=== PATIENT | male | born 1950 | race Caucasian/White ===

== ENCOUNTER → 2020-10-30 11:15 | Outpatient (CLI) | payer MEDICARE, OTHER, SELFPAY ==
--- NOTE | 2020-10-30 11:17 | DI.RAD.S_ITS ---
PROCEDURE: XR FINGER RT MIN 2V INDICATIONS: right finger TECHNIQUE: AP hand, 2 views of the 2nd finger(s) acquired. COMPARISON: None. FINDINGS: Bones: No fractures or dislocations. Mild 1st PIP and DIP joint osteoarthritic changes are seen with joint space narrowing and subchondral sclerosis. Subtle erosive changes are noted along radial aspect of 2nd proximal phalangeal head. Soft tissues: Soft tissue swelling surrounding 2nd PIP joint is seen. No suspicious soft tissue calcifications. IMPRESSION: No acute 2nd digit fracture or dislocation. 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 Erosive changes involving lateral aspect of 2nd proximal phalangeal head with surrounding soft tissue swelling concerning for erosion secondary to inflammatory arthropathy. Clinical correlation is recommended. Dictated by: Conor Brasher M.D. on 10/30/2020 at 13:15 Approved by: Conor Brasher M.D. on 10/30/2020 at 13:16
== END ==
PROVIDERS: PCP Internal Medicine; Referring Provider Internal Medicine; Visit Provider Internal Medicine
DX: M79.644 Pain in right finger(s) (principal); M19.041 Primary osteoarthritis, right hand
CPT/HCPCS: 73140

== ENCOUNTER → 2021-02-11 07:46 | Outpatient (CLI) | payer MEDICARE, OTHER, SELFPAY ==
[2021-02-11 09:56] LABS: Alanine Aminotransferase 33 IU/L (<50); Albumin 4.4 g/dL (3.5-5.0); Albumin Globulin Ratio 1.5 (1.0-2.8); Alkaline Phosphatase 47 U/L (38-126); Aspartate Aminotransferase 31 IU/L (17-59); BUN Creatinine Ratio 16.8 (6-22); Bilirubin Total 0.8 mg/dL (0.2-1.3); Blood Urea Nitrogen 18 mg/dL (9-20); Calcium 9.2 mg/dL (8.4-10.2); Carbon Dioxide 26 mmol/L (22-32); Chloride 100 mmol/L (98-107); Cholesterol 217 mg/dL (140-199); Estimated Glomerular Filt Rate > 60.0 mL/min (>60); Globulin 2.9 g/dL (1.7-4.1); Glucose 99 mg/dL (80-110); HDL Cholesterol 65 mg/dL (40-60); LDL Cholesterol Calculated 137 mg/dL (<100); Potassium 3.3 mmol/L (3.4-5.1); Sodium 138 mmol/L (137-145); Total Protein 7.3 g/dL (6.3-8.2); Triglycerides 73 mg/dL (35-150)
[2021-02-11 18:03] LABS: HEMOLYSIS < 15 (0-50); Prostate Specific Antigen Scrn 2.07 ng/mL (0.1-4.0)
== END ==
PROVIDERS: PCP Internal Medicine; Referring Provider Internal Medicine; Visit Provider Internal Medicine
DX: I10 Essential (primary) hypertension (principal); Z12.5 Encounter for screening for malignant neoplasm of prostate; Z13.1 Encounter for screening for diabetes mellitus; Z13.220 Encounter for screening for lipoid disorders
CPT/HCPCS: 36415; 80053; 80061; G0103

== ENCOUNTER → 2021-08-16 09:54 | Outpatient (CLI) | payer MEDICARE, OTHER, SELFPAY ==
[2021-08-16 11:16] LABS: BUN Creatinine Ratio 19.8 (6-22); Blood Urea Nitrogen 20 mg/dL (9-20); Calcium 9.5 mg/dL (8.4-10.2); Carbon Dioxide 28 mmol/L (22-32); Chloride 99 mmol/L (98-107); Estimated Glomerular Filt Rate > 60.0 mL/min (>60); Glucose 105 mg/dL (80-110); HEMOLYSIS < 15 (0-50); Potassium 3.5 mmol/L (3.4-5.1); Sodium 137 mmol/L (137-145)
== END ==
PROVIDERS: PCP Internal Medicine; Referring Provider Internal Medicine; Visit Provider Internal Medicine
DX: I10 Essential (primary) hypertension (principal); E87.6 Hypokalemia
CPT/HCPCS: 36415; 80048; 83735

== ENCOUNTER → 2022-02-18 07:24 | Outpatient (CLI) | payer MEDICARE, OTHER, SELFPAY ==
[2022-02-18 08:38] LABS: Blood Urea Nitrogen 16 mg/dL (9-20); Calcium 8.9 mg/dL (8.4-10.2); Carbon Dioxide 28 mmol/L (22-32); Chloride 105 mmol/L (98-107); Cholesterol 204 mg/dL (140-199); Estimated Glomerular Filt Rate > 60 mL/min (>60); Glucose 107 mg/dL (80-110); HDL Cholesterol 66 mg/dL (40-60); HEMOLYSIS < 15 (0-50); LDL Cholesterol Calculated 125 mg/dL (<100); Magnesium 1.8 mg/dL (1.6-2.3); Potassium 3.3 mmol/L (3.4-5.1); Sodium 139 mmol/L (137-145); Triglycerides 66 mg/dL (35-150)
[2022-02-18 09:07] LABS: Prostate Specific Antigen Scrn 2.31 ng/mL (0.1-4.0)
== END ==
PROVIDERS: PCP Internal Medicine; Referring Provider Internal Medicine; Visit Provider Internal Medicine
DX: I10 Essential (primary) hypertension (principal); Z12.5 Encounter for screening for malignant neoplasm of prostate; E78.2 Mixed hyperlipidemia; E83.42 Hypomagnesemia
CPT/HCPCS: 36415; 80048; 80061; 83735; G0103

== ENCOUNTER → 2022-03-16 08:53 | Outpatient (CLI) | payer MEDICARE, OTHER, SELFPAY ==
[2022-03-16 10:28] LABS: COVID19 -Nasal RAPID Negative (Negative)
== END ==
PROVIDERS: PCP Internal Medicine; Visit Provider Surgery
DX: Z20.822 Contact with and (suspected) exposure to COVID-19 (principal); Z01.812 Encounter for preprocedural laboratory examination
CPT/HCPCS: 87635; C9803

== ENCOUNTER 2022-03-17 07:38 | Day surgery (SDC) | payer MEDICARE, OTHER, SELFPAY ==
--- NOTE | 2022-03-17 | PATH_ITS ---
[facility] Accession Number: [id number] . 01 Material submitted: . PART A: colon - TRANSVERSE POLYPS PART B: colon - DISTAL TRANSVERSE POLYP PART C: sigmoid colon - SIGMOID POLYP PART D: rectum - RECTAL POLYP . 01 Clinical history: . COLONOSCOPY PERSONAL HISTORY OF COLONIC POLYPS . 01 Diagnosis: A. Transverse Polyps: Portions of tubular adenoma x2. . B. Distal Transverse Polyp: Portion of hyperplastic polyp x1. Superficial portion of colorectal mucosa x1 with no significant histomorphologic abnormality. . C. Sigmoid Polyp: Hyperplastic polyp. . D. Rectal Polyp: Tubular adenoma. MRV 03/21/2022 1527 Local . 01 Electronically signed: . Jacqueline Peraza MD, Pathologist NPI- [id number] . 01 Gross description: . Part A: TRANSVERSE POLYPS: Received in formalin are 2 fragment(s) of damon, soft tissue measuring 0.3 x 0.1 x 0.1 cm to 0.4 x 0.3 x 0.2 cm submitted entirely in 1 cassette(s) Part B: DISTAL TRANSVERSE POLYP: Received in formalin are 2 fragment(s) of damon, soft tissue measuring 0.3 x 0.3 x 0.2 cm to 0.4 x 0.3 x 0.2 cm submitted entirely in 1 cassette(s) Part C: SIGMOID POLYP: Received in formalin is 1 fragment(s) of damon, soft tissue measuring 0.8 x 0.6 x 0.5 cm submitted entirely in 1 cassette(s) Part D: RECTAL POLYP: Received in formalin is 1 fragment(s) of damon, soft tissue measuring 0.3 x 0.3 x 0.2 cm submitted entirely in 1 cassette(s) /JESUS MANUEL 03/18/20228 Local . 01 Pathologist provided ICD-10: K63.5 . 01 CPT . 137290, 706577, 848779, 193718 Specimen Comment: A courtesy copy of this report has been sent to [phone] Performed at: 01 [facility] [address] [place] [address], [place], [place] [id number] MD All King MD Phone: [phone]
[2022-03-17 07:54] VITALS: BP 144/87; PULSE 62; RESP 16; TEMP 36.6; O2SAT 97
[2022-03-17] MEDS: LACTATED RINGERS 1,000 ML 84 ML IV (08:04)
--- NOTE | 2022-03-17 08:32 | PM.HP.1 ---
History of Present Illness History of Present Illness Date Patient Seen: 03/17/22 Time Patient Seen: 08:32 Chief complaint: COLONOSCOPY Narrative: Tony is a 72-year-old man who is here for colonoscopy. He had 1 polyp removed at his last colonoscopy which he believes was 6 years ago. He has had other colonoscopies in the past where polyps were found. He also has a sister who had colon cancer in her 60s. Patient History Medical History (Updated 03/17/22 @ 08:33 by Troy Gómez MD) Acne (~1965) Chronic back pain (~1974) Erectile dysfunction Essential hypertension (~2004) H/O adenomatous polyp of colon (~2001) Hand pain (~2019) Hearing loss (~2009) Mixed hyperlipidemia PTSD (post-traumatic stress disorder) (~1970) Recurrent sinusitis (~1970) Retinal detachment (~2014) Scarring of lung (~1970) Tinnitus (~2005) Surgical History Anesthesia S/P inguinal hernia repair S/P tonsillectomy (~1954) Family & Social History Family History Father Cancer Mother Stroke Social History: household members spouse Tobacco & Substance use: Smoking Status Former smoker alcohol intake current Substance Use Type does not use Meds Home Medications and Allergies Home Medications Medication Instructions Recorded Confirmed Type chlorthalidone 25 mg tablet 25 mg PO QDAY #90 tabs 05/27/21 03/17/22 Rx felodipine 10 mg tablet,extended 10 mg PO DAILY #90 tabs 05/27/21 03/17/22 Rx release 24 hr fluticasone propionate 50 2 spray intranasal DAILY #32.4 mL 08/16/21 01/10/22 Rx mcg/actuation nasal spray,suspension potassium chloride 20 mEq 20 meq PO BID #180 tabs 02/19/22 03/17/22 Rx tablet,extended release Allergies Allergy/AdvReac Type Severity Reaction Status Date / Time No Known Drug Allergies Allergy Verified 01/10/22 09:05 Exam Vital Signs (past 8 hours): - 03/17/22 07:54 Temperature 98 F Pulse Rate 62 Respiratory Rate 16 Blood Pressure 144/87 H Pulse Oximetry 97 Oxygen Delivery Method Room Air Oxygen Delivery Method Room Air Const General: healthy appearing Resp Effort & Inspection: normal respiratory effort Assessment & Plan Assessment and plan (1) Family history of colon cancer: Status: Acute Plan 72-year-old man with a history of colon polyps and a family history of colon cancer who is here for colonoscopy. We reviewed the risks and benefits and he would like to proceed. COVID-19 COVID-19 status: Negative Result date/Date tested (Pos, Neg/Pending): 03/16/22 Time Spent With Patient Critical Care time: I spent a total of [] minutes of critical care time on this patient's care today; this time is exclusive of procedural time.
[2022-03-17] MEDS: MIDAZOLAM 5 MG/5 ML VIAL 7 MG IV (08:50)
[2022-03-17] MEDS: fentaNYL 250 MCG/5 ML INJ 150 MCG IV (08:50)
--- NOTE | 2022-03-17 09:25 | PM.OP.COLON ---
Operative Date/Time/Diagnoses Date of procedure: 03/17/22 Time of procedure: 09:25 Pre-op diagnosis: Family history of colon cancer personal history of colon polyps Post-op diagnosis: same Procedure & Clinicians Study performed: Colonoscopy Same procedure as scheduled: Yes Surgeon: Troy Gómez Procedure Notes Procedure in detail: Surgeon: Troy Gómez MD Procedure: The patient was brought to the endoscopy suite, placed in left lateral decubitus position. The patient was connected to monitoring devices. A time-out was performed. Sedation was administered. Once the patient was adequately sedated, a digital rectal exam was performed and was normal. The scope was then inserted and advanced to the cecum where the appendiceal orifice was identified and photographed. The scope was then slowly withdrawn over greater than 6 minutes. The mucosa was thoroughly inspected. There were two small transverse polyp of roughly 5 mm removed with Jumbo forceps. There was a 7 mm polyp in the distal transverse colon removed with cold snare. There was a sigmoid polyp removed with hot snare and a rectal polyp removed with cold snare each about 8 mm. There was The scope was retroflexed in the rectum. No abnormalities were noted. The scope was straightened and removed. The patient was awakened and brought to recovery. Versed: 7 mg Fentanyl: 150 mcg EBL: 10 mL Findings: 2 transverse colon polyps of 5 mm, 1 distal transverse colon polyp of 7 mm, 1 sigmoid polyp about 8 mm and 1 rectal polyp about 8 mm Scope withdrawal time: 32 Sedation minutes: 39 Post-procedure Recommendations: Will call with biopsy results Disposition: PACU
[2022-03-17 09:29] VITALS: BP 133/78; PULSE 57; RESP 17; TEMP 35.9; O2SAT 95
[2022-03-17 09:34] VITALS: BP 127/76; PULSE 54; RESP 13; TEMP 36.5; O2SAT 96
[2022-03-17 09:39] VITALS: BP 110/72; PULSE 58; RESP 16; TEMP 36.5; O2SAT 96
[2022-03-17 09:51] VITALS: BP 126/76; PULSE 57; RESP 11; TEMP 35.9; O2SAT 98
== END 2022-03-17 09:58 | disposition home or self-care (01) ==
PROVIDERS: PCP Internal Medicine; Referring Provider Surgery; Visit Provider Surgery
PROC: 0DJD8ZZ Inspection of Lower Intestinal Tract, Via Natural or Artificial Opening Endoscopic (ICD-10-PCS; CPT 45378; principal; 2022-03-17 08:45)
DX: Z12.11 Encounter for screening for malignant neoplasm of colon (principal); Z80.0 Family history of malignant neoplasm of digestive organs; Z86.010 Personal history of colon polyps; D12.3 Benign neoplasm of transverse colon; D12.8 Benign neoplasm of rectum
CPT/HCPCS: 45385; 45380; 99152; 99153; J2250; J3010

== ENCOUNTER → 2022-07-12 07:48 | Outpatient (CLI) | payer MEDICARE, OTHER, SELFPAY ==
[2022-07-12 09:26] LABS: BUN Creatinine Ratio 16.2 (6-22); Blood Urea Nitrogen 16 mg/dL (9-20); Calcium 9.1 mg/dL (8.4-10.2); Carbon Dioxide 27 mmol/L (22-32); Chloride 99 mmol/L (98-107); Estimated Glomerular Filt Rate > 60 mL/min (>60); Glucose 105 mg/dL (80-110); HEMOLYSIS < 15 (0-50); Magnesium 1.9 mg/dL (1.6-2.3); Potassium 3.5 mmol/L (3.4-5.1); Sodium 137 mmol/L (137-145)
== END ==
PROVIDERS: PCP Internal Medicine; Referring Provider Internal Medicine; Visit Provider Internal Medicine
DX: I10 Essential (primary) hypertension (principal); E87.6 Hypokalemia
CPT/HCPCS: 36415; 80048; 83735

== ENCOUNTER → 2023-02-16 08:26 | Outpatient (CLI) | payer MEDICARE, OTHER, SELFPAY ==
[2023-02-16 09:42] LABS: Alanine Aminotransferase 35 IU/L (<50); Albumin 4.5 g/dL (3.5-5.0); Albumin Globulin Ratio 1.5 (1.0-2.8); Alkaline Phosphatase 49 U/L (38-126); Aspartate Aminotransferase 28 IU/L (17-59); BUN Creatinine Ratio 14.8 (6-22); Bilirubin Total 0.9 mg/dL (0.2-1.3); Blood Urea Nitrogen 16 mg/dL (9-20); Calcium 9.1 mg/dL (8.4-10.2); Carbon Dioxide 27 mmol/L (22-32); Chloride 102 mmol/L (98-107); Cholesterol 230 mg/dL (140-199); Estimated Glomerular Filt Rate > 60 mL/min (>60); Globulin 3.1 g/dL (1.7-4.1); Glucose 111 mg/dL (80-110); HDL Cholesterol 76 mg/dL (40-60); HEMOLYSIS < 15 (0-50); LDL Cholesterol Calculated 140 mg/dL (<100); Magnesium 1.9 mg/dL (1.6-2.3); Potassium 3.5 mmol/L (3.4-5.1); Sodium 138 mmol/L (137-145); Total Protein 7.6 g/dL (6.3-8.2); Triglycerides 68 mg/dL (35-150)
== END ==
PROVIDERS: PCP Internal Medicine; Referring Provider Internal Medicine; Visit Provider Internal Medicine
DX: I10 Essential (primary) hypertension (principal); E78.2 Mixed hyperlipidemia
CPT/HCPCS: 36415; 80053; 80061; 83735

== ENCOUNTER → 2023-05-08 07:23 | Outpatient (CLI) | payer MEDICARE, OTHER, SELFPAY ==
[2023-05-08 08:46] LABS: BUN Creatinine Ratio 12.9 (6-22); Blood Urea Nitrogen 12 mg/dL (9-20); Calcium 8.9 mg/dL (8.4-10.2); Carbon Dioxide 27 mmol/L (22-32); Chloride 101 mmol/L (98-107); Estimated Glomerular Filt Rate > 60 mL/min (>60); Glucose 90 mg/dL (80-110); HEMOLYSIS < 15 (0-50); Potassium 3.7 mmol/L (3.4-5.1); Sodium 136 mmol/L (137-145)
== END ==
PROVIDERS: PCP Internal Medicine; Referring Provider Internal Medicine; Visit Provider Internal Medicine
DX: E78.2 Mixed hyperlipidemia (principal); I10 Essential (primary) hypertension
CPT/HCPCS: 36415; 80048

== ENCOUNTER → 2023-06-12 11:36 | Outpatient (CLI) | payer MEDICARE, OTHER, SELFPAY ==
--- NOTE | 2023-06-12 11:37 | DI.RAD.S_ITS ---
PROCEDURE: XR CHEST 2V INDICATIONS: chest pain TECHNIQUE: 2 views of the chest were acquired. COMPARISON: None. FINDINGS: Surgical changes and devices: None. Lungs and pleura: Lungs are clear. No pleural effusions or pneumothorax. Mediastinum: Mediastinal contours are normal. Heart size is normal. Bones and chest wall: No suspicious bony abnormalities. Soft tissues appear unremarkable. IMPRESSION: No acute cardiopulmonary abnormality is seen. Approved by: Easton Christopher M.D. on 06/12/2023 at 14:10
[2023-06-12 12:32] LABS: Add Manual Diff / Slide Review NO; Basophils Absolute Auto 100 /uL (0-100); Basophils Percent Auto 0.9 % (0-2); Eosinophils Absolute Auto 100 /uL (0-450); Eosinophils Percent Auto 1.9 % (2-4); Hematocrit 43.4 % (41-53); Hemoglobin 14.9 g/dL (13.5-17.5); Lymphocytes Absolute Auto 1700 /uL (1100-4500); Lymphocytes Percent Auto 24.4 % (25-40); Mean Corpuscular HGB Conc 34.4 % (30-36); Mean Corpuscular Hemoglobin 32.6 PG (26-34); Mean Corpuscular Volume 94.7 fL (80-100); Monocytes Absolute Auto 600 /uL (0-900); Monocytes Percent Auto 7.9 % (3-14); Neutrophils Absolute Auto 4500 /uL (1500-7000); Neutrophils Percent Auto 64.9 % (50-75); Platelet Count 208 X10^3/uL (150-400); Red Blood Cell Count 4.58 X10^6/uL (4.5-5.9); Red Cell Distribution Width 12.7 % (11.6-14.8)
[2023-06-12 12:51] LABS: Alanine Aminotransferase 27 IU/L (<50); Albumin 4.3 g/dL (3.5-5.0); Albumin Globulin Ratio 1.6 (1.0-2.8); Alkaline Phosphatase 44 U/L (38-126); Aspartate Aminotransferase 26 IU/L (17-59); BUN Creatinine Ratio 18.2 (6-22); Bilirubin Total 0.8 mg/dL (0.2-1.3); Blood Urea Nitrogen 18 mg/dL (9-20); Calcium 9.1 mg/dL (8.4-10.2); Carbon Dioxide 27 mmol/L (22-32); Chloride 101 mmol/L (98-107); Estimated Glomerular Filt Rate > 60 mL/min (>60); Globulin 2.7 g/dL (1.7-4.1); Glucose 98 mg/dL (80-110); HEMOLYSIS < 15 (0-50); Potassium 3.7 mmol/L (3.4-5.1); Sodium 136 mmol/L (137-145)
== END ==
PROVIDERS: PCP Internal Medicine; Referring Provider Internal Medicine; Visit Provider Internal Medicine
DX: R07.9 Chest pain, unspecified (principal); D64.9 Anemia, unspecified; E78.2 Mixed hyperlipidemia; I10 Essential (primary) hypertension
CPT/HCPCS: 36415; 71046; 80053; 85025

== ENCOUNTER → 2023-06-19 13:31 | Outpatient (CLI) | payer MEDICARE, OTHER, SELFPAY | PROVIDERS: PCP Internal Medicine; Referring Provider Internal Medicine; Visit Provider Internal Medicine | DX: R55 Syncope and collapse (principal) | CPT/HCPCS: 93242 ==

== ENCOUNTER → 2023-06-29 07:34 | Outpatient (CLI) | payer MEDICARE, OTHER, SELFPAY ==
--- NOTE | 2023-06-30 01:26 | DI.NM.S_ITS ---
DATE OF SERVICE: 06/29/2023 PROCEDURE: Exercise stress test. INDICATIONS: Dizziness, chest pain, hypertension. CARDIAC STRESS: The patient underwent exercise stress test under the supervision of an attending staff. He walked on Vidal protocol for 6 minutes and 53 seconds, achieved maximum heart rate of 133, which was 90% of target heart rate. Normal hemodynamic response except mildly hypertensive blood pressure response. Resting blood pressure 130/80 and peak blood pressure 202/90. KRIS -6%. Baseline rhythm sinus with mild sinus bradycardia with poor R-wave progression. During stress, no convincing ischemic changes seen. The patient has frequent PVCs, mostly isolated as well as some episodes of bigeminy in recovery, as well as ventricular couplet without any ventricular tachycardia. During exercise, patient has short run of atrial tachycardia without any obvious Afib, as well as intermittent PACs. CONCLUSION: Exercise stress test is negative for inducible ischemia. Fair exercise tolerance. KRIS -6%. Mildly hypertensive blood pressure response. Peak blood pressure 202/90. Intermittent PACs, PVCs, including ventricular couplets and short run of atrial tachycardia without any obvious AFib or ventricular tachycardia. The patient did have any chest pain. The patient felt fatigue and dyspnea. Paulo Friend - ANGUS/moris/saloni doc#: [id number]/job#: [id number] dd: 06/29/2023 17:13:00 dt: 06/30/2023 01:19:00 DICTATING /COPIES TO: Rafy Tracy MD COPIES MNE: BERNARDA;
== END ==
PROVIDERS: PCP Internal Medicine; Referring Provider Internal Medicine; Visit Provider Internal Medicine
DX: R07.9 Chest pain, unspecified (principal); D64.9 Anemia, unspecified
CPT/HCPCS: 93017

== ENCOUNTER → 2023-08-01 08:13 | Outpatient (CLI) | payer MEDICARE, OTHER, SELFPAY | PROVIDERS: PCP Internal Medicine; Referring Provider Internal Medicine; Visit Provider Internal Medicine | DX: R06.02 Shortness of breath (principal); Z87.891 Personal history of nicotine dependence | CPT/HCPCS: 94060; 94726; 94729 ==

== ENCOUNTER → 2024-02-06 11:44 | Outpatient (CLI) | payer MEDICARE, OTHER, SELFPAY ==
[2024-02-06 13:38] LABS: BUN Creatinine Ratio 15.9 (6-22); Blood Urea Nitrogen 18 mg/dL (9-20); Calcium 9.2 mg/dL (8.4-10.2); Carbon Dioxide 25 mmol/L (22-32); Chloride 106 mmol/L (98-107); Estimated Glomerular Filt Rate > 60 mL/min (>60); Glucose 99 mg/dL (80-110); HEMOLYSIS < 15 (0-50); Magnesium 2.1 mg/dL (1.6-2.3); Potassium 3.4 mmol/L (3.4-5.1); Sodium 139 mmol/L (137-145)
== END ==
PROVIDERS: PCP Internal Medicine; Referring Provider Internal Medicine; Visit Provider Internal Medicine
DX: I49.3 Ventricular premature depolarization (principal)
CPT/HCPCS: 36415; 80048; 83735

== ENCOUNTER 2024-06-18 18:40 | Emergency (ER) | payer MEDICARE, OTHER, SELFPAY ==
[2024-06-18] VITALS (9 sets, daily range): BP systolic 168–207; BP diastolic 80–104; PULSE 50–72; RESP 18; TEMP 36.3–36.4; O2SAT 97–99; BMI 29.4
--- NOTE | 2024-06-18 18:47 | DI.RAD.S_ITS ---
PROCEDURE: XR ELBOW LT MIN 3V INDICATIONS: fall/pain TECHNIQUE: 3 views of the elbow were acquired. COMPARISON: None. FINDINGS: Bones: No fractures or dislocations. No suspicious bony lesions. Dystrophic calcification lateral to the lateral condyle. Soft tissues: Moderate elbow joint effusion. No suspicious soft tissue calcifications. IMPRESSION: No displaced fracture with a moderate elbow joint effusion. Occult fracture not excluded. Dictated by: Khanh Page M.D. on 06/18/2024 at 19:13 Approved by: Khanh Page M.D. on 06/18/2024 at 19:15
[2024-06-18] MEDS: OXYCODONE IR 5 MG TABLET PO (20:10)
--- NOTE | 2024-06-18 20:10 | ED_ITS ---
HPI - Extremity Injury (Upper) General Chief Complaint: Extremity Injury, Upper Stated Complaint: Fall off ladder, shoulder px Time Seen by Provider: 06/18/24 19:35 Source: patient Mode of arrival: Ambulatory History of Present Illness HPI narrative: 74-year-old male presents for left elbow pain. Patient states that he slipped while working on a ladder and fell approximately 5 ft, landing on both of his elbows. He denies hitting his head, denies loss of consciousness, denies use of blood thinners. Checking complaints state shoulder pain, however patient localizes pain to his left elbow. He states that his shoulder feels sore but he was confident that it was not broken. Related Data Home Medications Medication Instructions Recorded Confirmed aspirin 81 mg tablet,delayed [address] recommended 04/11/24 06/18/24 release (Adult Low Dose Aspirin) Previous Rx's Medication Instructions Recorded fluticasone propionate 50 2 spray intranasal DAILY #32.4 mL 08/16/21 mcg/actuation nasal spray,suspension urea 40 % topical cream 1 applic topical TID PRN skin 12/21/23 irritation/psoriasis #28.35 grams chlorthalidone 25 mg tablet 25 mg PO QDAY #90 tabs 03/11/24 felodipine 10 mg tablet,extended 10 mg PO DAILY #90 tabs 03/11/24 release 24 hr losartan 50 mg tablet 50 mg PO DAILY #90 tabs 03/11/24 potassium chloride 20 mEq 20 meq PO BID #180 tabs 03/19/24 tablet,extended release hydrocodone 5 mg-acetaminophen 325 1 tab PO Q8H PRN pain #12 tabs 06/18/24 mg tablet Allergies Allergy/AdvReac Type Severity Reaction Status Date / Time No Known Drug Allergies Allergy Verified 06/18/24 18:38 Patient History Medical History Ascending aortic aneurysm Erectile dysfunction Mixed hyperlipidemia Acne (~1965) Scarring of lung (~1970) PTSD (post-traumatic stress disorder) (~1970) Hand pain (~2019) Chronic back pain (~1974) Tinnitus (~2005) Retinal detachment (~2014) Recurrent sinusitis (~1970) Hearing loss (~2009) H/O adenomatous polyp of colon (~2001) Essential hypertension (~2004) Surgical History Anesthesia S/P tonsillectomy (~1955) S/P inguinal hernia repair Family History Father Cancer Mother Stroke Social History household members: spouse Smoking Status: Former smoker Tobacco: How many years used: 30 alcohol intake: current Smoking Status: Former smoker alcohol intake frequency: 3 or more drinks per day Substance Use Type: does not use Exam Initial Vital Signs Initial Vital Signs: Vital Signs Temperature 97.6 F 06/18/24 18:42 Pulse Rate 62 06/18/24 18:42 Respiratory Rate 18 06/18/24 18:42 Blood Pressure 207/104 H 06/18/24 18:42 Pulse Oximetry 98 06/18/24 18:42 Oxygen Delivery Method Room Air 06/18/24 18:42 Const: Awake, alert, no acute distress, nontoxic appearing MSK: No deformity, swelling of left elbow, generalized tenderness along left elbow joint. 2+ radial pulses, movement and sensation in fingers intact. Skin: Warm, Dry, intact, no rashes Neuro: AO x3, CN II-XII grossly intact, moves all extremities Course Orders Ordered: ED Orders 06/18/24 18:47 XR elbow LT min 3V Stat 06/18/24 20:09 CT UE LT wo con Stat Discontinued Medications Hydrocodone Bitart/Acetaminophen (Hydrocodone/Acet 5/325 Prepack) 1 bottle MISC DIRECTED ONE Stop: 06/18/24 21:31 Last Admin: 06/18/24 21:43 Dose: 1 bottle Oxycodone HCl (Oxycodone Ir 5 Mg Tablet) 5 mg PO NOW ONE Stop: 06/18/24 20:04 Last Admin: 06/18/24 20:10 Dose: 5 mg Documented By: [facility] Vital Signs Vital signs: Vital Signs - 8 hr 06/18/24 18:42 06/18/24 19:39 06/18/24 19:40 Temperature 97.6 F 97.3 F L Pulse Rate 62 72 57 L Pulse Rate [Left Radial] Respiratory Rate 18 18 Blood Pressure 207/104 H 194/95 H Pulse Oximetry 98 99 99 Oxygen Delivery Method Room Air Room Air Oxygen Flow Rate 0 06/18/24 19:41 06/18/24 20:00 06/18/24 20:30 Temperature Pulse Rate 57 L 59 L Pulse Rate [Left Radial] 50 L Respiratory Rate Blood Pressure Pulse Oximetry 98 99 Oxygen Delivery Method Oxygen Flow Rate 06/18/24 21:02 06/18/24 21:03 06/18/24 21:03 Temperature Pulse Rate 62 60 Pulse Rate [Left Radial] Respiratory Rate Blood Pressure 168/80 H Pulse Oximetry 97 97 Oxygen Delivery Method Oxygen Flow Rate 06/18/24 21:34 Temperature Pulse Rate Pulse Rate [Left Radial] Respiratory Rate 18 Blood Pressure Pulse Oximetry Oxygen Delivery Method Oxygen Flow Rate MDM - Extremity Injury (Upper) Imaging Data Extremity x-ray #1: Radiologist's Impression: PROCEDURE: XR ELBOW LT MIN 3V INDICATIONS: fall/pain TECHNIQUE: 3 views of the elbow were acquired. COMPARISON: None. FINDINGS: Bones: No fractures or dislocations. No suspicious bony lesions. Dystrophic calcification lateral to the lateral condyle. Soft tissues: Moderate elbow joint effusion. No suspicious soft tissue calc ifications. IMPRESSION: No displaced fracture with a moderate elbow joint effusion. Occult fracture not excluded. Dictated by: Khanh Page M.D. on 06/18/2024 at 19:13 Approved by: Khanh Page M.D. on 06/18/2024 at 19:15 PROCEDURE: CT UE LT WO CON INDICATIONS: EVAL FX, NEG XR TECHNIQUE: Noncontrast 1-1.5 mm axial sections were acquired through the elbow joint, with coronal and sagittal reformats. COMPARISON: [facility], , XR ELBOW LT MIN 3V, 06/18/2024, 18:53. FINDINGS: Image quality: Diagnostic Bones: Minimally displaced radial head/neck fracture. Mild scattered degenerative changes and scattered enthesopathy. Focal ossifications seen at the lateral humeral epicondyle tendon origins. Soft tissues: Joint effusion and soft tissue swelling. IMPRESSION: Minimally displaced radial head/neck fracture and joint effusion. No elbow dislocation. Background degenerative changes and enthesopathy. Dictated by: Umair Suarez M.D. on 06/18/2024 at 21:20 Approved by: Umair Suarez M.D. on 06/18/2024 at 21:22 [facility] Narrative Medical decision making narrative: Accidental fall from ladder with left elbow injury. Patient denying head trauma. Neurovascularly intact on exam. Initial x-ray negative for acute findings, but occult fracture not ruled out. With the amount of pain patient was experiencing I do have high suspicion for occult fracture and CT will be ordered. CT shows minimally displaced radial head/neck fracture with joint effusion. Patient placed in posterior long-arm splint and given sling for comfort. Counseled on the importance of orthopedic follow up. Pain medication sent to pharmacy of choice. Discharge Plan Departure Patient Disposition: Home Clinical Impression: Closed fracture of radial head Qualifiers: Encounter type: initial encounter Fracture alignment: displaced Laterality: left Qualified Code(s): S52.122A - Displaced fracture of head of left radius, initial encounter for closed fracture Instructions: DI for Elbow Fracture Activity Restrictions/Additional Instructions: There were no obvious fractures on x-ray imaging, but your CT scan did show a minimally displaced radial head fracture and some fluid around the joint. Wear the splint and sling until you follow up with Orthopedic surgery. The pain medications prescribed may cause drowsiness, so do not take them with alcohol or before driving. They also cause constipation, so take a daily stool softener with this medication. You may take 650 mg of Tylenol and 400 mg of ibuprofen for pain as well. Take no more than 4000 mg of Tylenol total daily. Prescriptions: New hydrocodone-acetaminophen 5-325 mg tablet 1 tab PO Q8H PRN (Reason: pain) Qty: 12 0RF No Action urea 40 % cream 1 applic topical TID PRN (Reason: skin irritation/psoriasis) Qty: 28.35 3RF losartan 50 mg tablet 50 mg PO DAILY Qty: 90 3RF felodipine 10 mg tablet extended release 24 hr 10 mg PO DAILY Qty: 90 3RF chlorthalidone 25 mg tablet 25 mg PO QDAY Qty: 90 3RF potassium chloride 20 mEq tablet extended release 20 meq PO BID Qty: 180 3RF fluticasone propionate 50 mcg/actuation spray,suspension 2 spray intranasal DAILY Qty: 32.4 11RF aspirin [Adult Low Dose Aspirin] 81 mg tablet,delayed release (DR/EC) 81 mg PO DAILY Referrals: Terence Alcocer MD [Primary Care Provider] - Brandon Andino MD [Physician] - Stand Alone Forms: Patient Portal/API
[2024-06-18] MEDS: HYDROCODONE/ACET 5/325 PREPACK 1 BOTTLE MISC (21:43)
== END 2024-06-18 21:56 | disposition home or self-care (01) ==
PROVIDERS: Emergency Provider Emergency Medicine; PCP Internal Medicine
DX: S52.122A Displaced fracture of head of left radius, initial encounter for closed fracture (principal); W11.XXXA Fall on and from ladder, initial encounter
CPT/HCPCS: 29105; 73080; 73200; 99283; 99284

== ENCOUNTER → 2024-10-22 07:37 | Outpatient (CLI) | payer MEDICARE, OTHER, SELFPAY ==
[2024-10-22 08:55] LABS: Alanine Aminotransferase 27 IU/L (<50); Albumin 4.6 g/dL (3.5-5.0); Albumin Globulin Ratio 1.6 (1.0-2.8); Alkaline Phosphatase 52 U/L (38-126); Aspartate Aminotransferase 33 IU/L (17-59); BUN Creatinine Ratio 13.2 (6-22); Bilirubin Total 1.1 mg/dL (0.2-1.3); Blood Urea Nitrogen 15 mg/dL (9-20); Calcium 9.1 mg/dL (8.4-10.2); Carbon Dioxide 27 mmol/L (22-32); Chloride 102 mmol/L (98-107); Cholesterol 220 mg/dL (140-199); Estimated Glomerular Filt Rate > 60 mL/min (>60); Globulin 2.9 g/dL (1.7-4.1); Glucose 102 mg/dL (80-110); HDL Cholesterol 61 mg/dL (40-60); HEMOLYSIS < 15 (0-50); LDL Cholesterol Calculated 141 mg/dL (<100); Sodium 136 mmol/L (137-145); Total Protein 7.5 g/dL (6.3-8.2); Triglycerides 88 mg/dL (35-150)
== END ==
PROVIDERS: PCP Internal Medicine; Referring Provider Internal Medicine; Visit Provider Internal Medicine
DX: E78.2 Mixed hyperlipidemia (principal); I10 Essential (primary) hypertension
CPT/HCPCS: 36415; 80053; 80061

== ENCOUNTER → 2024-10-26 14:05 | Outpatient (CLI) | payer MEDICARE, OTHER, SELFPAY ==
--- NOTE | 2024-10-26 14:09 | DI.MRI.S_ITS ---
PROCEDURE: MR WRIST LT WO CON INDICATIONS: NONDISCPLACED FRACTURE OF NECK OF L RADIUS TECHNIQUE: Noncontrast coronal proton density fast spin echo and T2 fast spin echo with fat saturation; coronal 3-D gradient echo, axial T1 spin echo and T2 fast spin echo with fat saturation, sagittal T1 spin echo through the wrist. COMPARISON: [facility], CR, XR ELBOW 1 OR 2 VIEWS LEFT, 09/02/2024, 9:43. [facility], CR, XR WRIST 3+ VIEWS LEFT, 07/01/2024, 8:49. [facility], CT, CT UE LT WO CON, 06/18/2024, 20:15. FINDINGS: Image quality: Excellent. Bones and cartilage: The carpal bones are normally aligned. There is no marrow edema. No acute fracture or dislocation. No evidence of avascular necrosis. [id number]-wn-fsmefyse osteoarthritic changes are noted throughout wrist joints more notably involving 1st CMC joint. Carpal ligaments: The scapholunate ligament appears thickened with intrasubstance T2 hyperintense signal. The lunotriquetral ligament is intact. In the absence of intra-articular contrast, the extrinsic carpal ligaments are not well identified. On sagittal images, the pisohamate ligament appears intact. Triangular fibrocartilage complex: There is signal abnormality and fraying involving triangular fibrocartilage near its ulnar insertion concerning for TFC tear. The adjacent meniscal homolog appears normal in the absence of intra-articular contrast. The extensor carpi ulnaris tendon is thickened with intrasubstance T2 hyperintense signal along ulnar styloid. Tendons and soft tissues: The carpal tunnel structures appear normal, including the median nerve. The ulnar nerve appears normal within Guyon's canal. All six extensor tendon compartments demonstrate normal morphology, without pathologic tendon sheath fluid. No soft tissue ganglion cysts. IMPRESSION: 1. No marrow edema. No fracture or dislocation. Bvdi-ym-lbqejgvz wrist joint osteoarthritis. No evidence of avascular necrosis. 2. Suggestion of sprain/low-grade intrasubstance partial-thickness tear involving scapholunate ligament. No full-thickness ligament rupture. The lunotriquetral ligament is intact. 3. Suggestion of complex tear involving triangular fibrocartilage near its ulnar insertion. 4. Tendinosis and low-grade intrasubstance partial-thickness tear involving extensor carpi ulnaris tendon along ulnar aspect of ulnar styloid. Rest of the extensor and flexor tendons are intact. Dictated by: Conor Brasher M.D. on 10/28/2024 at 12:48 Approved by: Conor Brasher M.D. on 10/28/2024 at 12:53
== END ==
PROVIDERS: PCP Internal Medicine; Referring Provider Orthopaedic Surgery; Visit Provider Orthopaedic Surgery
DX: S52.135A Nondisplaced fracture of neck of left radius, initial encounter for closed fracture (principal); M19.032 Primary osteoarthritis, left wrist; S56.512A Strain of other extensor muscle, fascia and tendon at forearm level, left arm, initial encounter
CPT/HCPCS: 73221

== ENCOUNTER 2025-01-02 06:34 | Day surgery (SDC) | payer MEDICARE, OTHER, SELFPAY ==
[2025-01-02 06:54] VITALS: BMI 29.5
[2025-01-02] MEDS: LACTATED RINGERS 1,000 ML 42 ML IV (07:05)
[2025-01-02 07:07] VITALS: BP 152/88; PULSE 57; RESP 17; TEMP 36.4; O2SAT 95
--- NOTE | 2025-01-02 07:44 | P.HP_ITS ---
History of Present Illness History of Present Illness Date Patient Seen: 01/02/25 Time Patient Seen: 07:45 Chief complaint: Colonoscopy w/poss bx Narrative: Tony is a 74-year-old man with a history of polyps in 2021. He also has a family history of a colon cancer in his sister when she was in her 60s. [facility] Medical History (Updated 01/02/25 @ 06:53 by Harpal Morales RN) Shortness of breath Ascending aortic aneurysm Erectile dysfunction Mixed hyperlipidemia Acne (~1965) Scarring of lung (~1970) PTSD (post-traumatic stress disorder) (~1970) Hand pain (~2019) Chronic back pain (~1974) Tinnitus (~2005) Retinal detachment (~2014) Recurrent sinusitis (~1970) Hearing loss (~2009) H/O adenomatous polyp of colon (~2001) Essential hypertension (~2004) Surgical History (Updated 01/02/25 @ 06:54 by Harpal Morales RN) History of loop recorder Anesthesia S/P tonsillectomy (~1954) S/P inguinal hernia repair Family History Father Cancer Mother Stroke Social History household members: spouse Smoking Status: Former smoker Tobacco: How many years used: 30 alcohol intake: current Meds Home Medications and Allergies Home Medications Medication Instructions Recorded Confirmed Type urea 40 % topical cream 1 applic topical TID PRN skin 12/21/23 11/15/24 Rx irritation/psoriasis #28.35 grams chlorthalidone 25 mg tablet 25 mg PO QDAY #90 tabs 03/11/24 01/02/25 Rx felodipine 10 mg tablet,extended 10 mg PO DAILY #90 tabs 03/11/24 01/02/25 Rx release 24 hr potassium chloride 20 mEq 20 meq PO BID #180 tabs 03/19/24 01/02/25 Rx tablet,extended release aspirin 81 mg tablet,delayed [address] pulliam 04/11/24 01/02/25 History release (Adult Low Dose Aspirin) olive leaf extract 250 mg capsule 250 mg PO BID 11/15/24 11/15/24 History fluticasone propionate 50 2 spray intranasal DAILY PRN 01/02/25 01/02/25 History mcg/actuation nasal Allergy Symptoms spray,suspension losartan 50 mg tablet 50 mg PO BID 01/02/25 01/02/25 History Allergies Allergy/AdvReac Type Severity Reaction Status Date / Time carvedilol AdvReac Intermediate bradycardia Verified 01/02/25 06:51 Exam Vital Signs (past 8 hours): - 01/02/25 07:07 Temperature 97.5 F L Pulse Rate 57 L Respiratory Rate 17 Blood Pressure 152/88 H Pulse Oximetry 95 Oxygen Delivery Method Room Air Oxygen Delivery Method Room Air Const General: healthy appearing Assessment & Plan Assessment and plan (1) H/O adenomatous polyp of colon: Status: Inactive (2) Family history of colon cancer: Status: Inactive Plan Colonoscopy Time-Based Coding :: [TOTAL MINUTES] spent with patient and on the chart (including review of chart, obtaining history, exam, reviewing outside data, placing orders, documenting exam and treatment plan, and counseling patient) on [DATE]. PROFEE Electrical Test Technician Document charge(s): No
--- NOTE | 2025-01-02 08:10 | P.OP.COLON_ITS ---
Operative Date/Time/Diagnoses Date of procedure: 01/02/25 Time of procedure: 08:10 Pre-op diagnosis: History of polyps and family history of colon cancer Post-op diagnosis: same Procedure & Clinicians Study performed: Colonoscopy Same procedure as scheduled: Yes Surgeon: Troy Gómez Procedure Notes Procedure in detail: Surgeon: Troy Gómez MD Anesthesia: Manisha Wray CRNA Procedure: The patient was brought to the endoscopy suite, placed in left lateral decubitus position. The patient was connected to monitoring devices. A time-out was performed. Sedation was administered. Once the patient was adequately sedated, a digital rectal exam was performed and was normal. The sc ope was then inserted and advanced to the cecum where the appendiceal orifice was identified and photographed. The scope was then slowly withdrawn over greater than 6 minutes. The mucosa was thoroughly inspected. No polyps were found. The scope was retroflexed in the rectum. No other abnormalities were seen. The scope was straightened and removed. The patient was awakened and brought to recovery. Scope withdrawal time: 8 minutes Sedation time: 14 minutes EBL: 0 Findings: Normal colon Post-procedure Recommendations: Colonoscopy in 5 years Disposition: PACU
[2025-01-02 08:13] VITALS: BP 113/83; PULSE 56; RESP 16; TEMP 36.8; O2SAT 95
[2025-01-02 08:16] VITALS: BP 138/94; PULSE 56; RESP 11; TEMP 36.4; O2SAT 95
== END 2025-01-02 08:30 | disposition home or self-care (01) ==
PROVIDERS: PCP Internal Medicine; Referring Provider Surgery; Visit Provider Surgery
PROC: 0DJD8ZZ Inspection of Lower Intestinal Tract, Via Natural or Artificial Opening Endoscopic (ICD-10-PCS; CPT 45378; principal; 2025-01-02 07:45)
DX: Z12.11 Encounter for screening for malignant neoplasm of colon (principal); Z80.0 Family history of malignant neoplasm of digestive organs; Z86.0100 Personal history of colon polyps, unspecified
CPT/HCPCS: G0105; J2704

== ENCOUNTER → 2025-01-14 10:25 | Outpatient (CLI) | payer MEDICARE, OTHER, SELFPAY ==
[2025-01-14 11:33] LABS: BUN Creatinine Ratio 14.7 (6-22); Blood Urea Nitrogen 17 mg/dL (9-20); Calcium 9.4 mg/dL (8.4-10.2); Carbon Dioxide 24 mmol/L (22-32); Chloride 103 mmol/L (98-107); Estimated Glomerular Filt Rate > 60 mL/min (>60); Glucose 101 mg/dL (80-110); HEMOLYSIS < 15 (0-50); Potassium 4.2 mmol/L (3.4-5.1); Sodium 137 mmol/L (137-145)
== END ==
PROVIDERS: PCP Internal Medicine; Referring Provider Nurse Practitioner; Visit Provider Nurse Practitioner
DX: I10 Essential (primary) hypertension (principal)
CPT/HCPCS: 36415; 80048